=== PATIENT | female | born 1980 | race Caucasian/White ===

== ENCOUNTER 2016-11-21 00:18 | Emergency (ER) | payer BC, OTHER ==
[2016-11-21 00:30] VITALS: BP 105/65; PULSE 80; O2SAT 99
[2016-11-21] MEDS ORDERED: TETRACAINE 0.5% STERI-UNIT SOL OP STA (00:32)
[2016-11-21] MEDS ORDERED: Fluor-I-Strip/Ful-Flo OP ONE ×2 (00:32→00:33)
[2016-11-21] MEDS ORDERED: Eye-Stream Solution OP ONE (00:32)
[2016-11-21] MEDS ORDERED: TETRACAINE 0.5% STERI-UNIT SOL OP ONE (00:33)
[2016-11-21] MEDS ORDERED: Eye-Stream Solution ONE (00:37)
[2016-11-21] MEDS ORDERED: Ciloxan OPHTH OP ONE (00:52)
[2016-11-21] MEDS ORDERED: NORCO 5/325 MG PO ONE (00:53)
[2016-11-21] MEDS ORDERED: Ciloxan OPHTH ONE (00:55)
[2016-11-21] MEDS ORDERED: NORCO 5/325 MG ONE (00:55)
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
== END 2016-11-21 01:15 | disposition home or self-care (01) ==
LOC: ED 00:18
DX: T15.91XA Foreign body on external eye, part unspecified, right eye, initial encounter (principal)
CPT/HCPCS: 99284; A9270-GY

== ENCOUNTER 2017-01-30 12:04 | Emergency (ER) | payer BC, OTHER ==
[2017-01-30] MEDS ORDERED: Norco 10/325 MG Tablet PO ONE (12:32)
[2017-01-30] MEDS ORDERED: Augmentin 875-125 Tablet PO ONE (12:32)
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
[2017-01-30] MEDS ORDERED: Augmentin 875-125 Tablet ONE (12:35)
[2017-01-30] MEDS ORDERED: Norco 10/325 MG Tablet ONE (12:36)
--- NOTE | 2017-01-30 13:10 | XRAY ---
Indication: Posterior swelling following dog bite. Comparison: None 3 views of the left hand demonstrates fourth finger ring. No other bony, articular, or soft tissue abnormalities.
--- NOTE | 2017-01-30 13:11 | XRAY ---
Indication: Dog bite. Comparison: None 2 views of the left forearm obtained. No bony, articular, or soft tissue abnormalities.
[2017-01-30 13:55] VITALS: BP 118/68; PULSE 80; O2SAT 98
== END 2017-01-30 13:55 | disposition home or self-care (01) ==
LOC: ED 12:04
PROC: 2W3DX1Z Immobilization of Left Lower Arm using Splint (ICD-10-PCS; principal; 2017-01-30)
DX: L03.114 Cellulitis of left upper limb (principal); S51.852A Open bite of left forearm, initial encounter; W54.0XXA Bitten by dog, initial encounter
CPT/HCPCS: 29126; 73090; 73130; 99283; 99284; A9270-GY

== ENCOUNTER 2021-05-24 14:30 | Day surgery (SDC) | payer OTHER ==
[2021-05-24] MEDS ORDERED: BUPIVACAINE 0.5% VIAL IJ ONE (14:31)
[2021-05-24] MEDS ORDERED: Depo-Medrol 40 MG/ML IM ONE (14:31)
[2021-05-24] MEDS ORDERED: DIPRIVAN 200 MG/20 ML IV ONE (15:38)
[2021-05-24] MEDS ORDERED: Lactated Ringers 1,000 ML IV ONE (16:32)
--- NOTE | 2021-05-24 17:00 | XRAY ---
Indication: Left SI joint injection. Intraoperative fluoroscopy provided for 29 seconds. 2 digital spot image submitted for interpretation demonstrates posterior needle tip projecting over the inferior left SI joint. Correlate with intraoperative findings/report.
--- NOTE | 2021-05-24 20:45 | XRAY ---
29 seconds of fluoroscopy was used in surgery for a left SI joint injection.
== END 2021-05-24 16:10 | disposition home or self-care (01) ==
LOC: SDC-PAIN 14:30
PROVIDERS: ATTEND Psychiatry & Neurology Pain Medicine
DX: M46.1 Sacroiliitis, not elsewhere classified (principal); Z79.899 Other long term (current) drug therapy
CPT/HCPCS: 27096; 72020; 77002; G0260; J1030; J2704